=== PATIENT | female | born 1990 | race Two or more races ===

== ENCOUNTER 2017-12-03 19:06 | Emergency (ER) | payer BC, MEDICAID ==
--- NOTE | 2017-12-03 21:09 | EDM.PDOC ---
ED HPI GENERAL MEDICAL PROBLEM - General Chief Complaint: SPA ASSISTANT MANAGER Problem Stated Complaint: VAG BLEEDING Time Seen by Provider: 12/03/17 19:30 Source of Information: Reports: Patient, Family History Limitations: Reports: No Limitations - History of Present Illness INITIAL COMMENTS - FREE TEXT/NARRATIVE: c/o vaginal spotting pt 15w gestation, OB in [place], lives in [place], works at [employer] has had several OB visits, , had u/s at 9-10w has had a small amount of light pink blood on TP when she wipes x 2d, had a small amount of pink tinged mucus this evening no cramping, feeling fine otherwise, no f/c/d, no n/v, no pain left lower abdomen Pain Score (Numeric/FACES): 6 - Related Data Allergies Allergy/AdvReac Type Severity Reaction Status Date / Time No Known Allergies Allergy Verified 12/03/17 19:27 Home Meds: Home Meds Vit #76/Iron,Carb/Fa [Prenatabs Rx] 1 tab PO DAILY 03/28/15 [History] Past Medical History Other HEENT History: wisdom teeth SPA ASSISTANT MANAGER History: Reports: Social & Family History - Family History Family Medical History: Noncontributory - Tobacco Use Smoking Status *Q: Former Smoker Years of Tobacco use: 4 Packs/Tins Daily: 1 Used Tobacco, but Quit: Yes Month/Year Tobacco Last Used: 09/2017 Second Hand Smoke Exposure: No - Caffeine Use Caffeine Use: Reports: Soda, Tea - Recreational Drug Use Recreational Drug Use: No ED ROS GENERAL - Review of Systems Review Of Systems: See Below Constitutional: Reports: No Symptoms HEENT: Reports: No Symptoms Respiratory: Reports: No Symptoms Cardiovascular: Reports: No Symptoms Endocrine: Reports: No Symptoms GI/Abdominal: Reports: No Symptoms : Reports: Other (vag d/c with pink tinge) Musculoskeletal: Reports: No Symptoms Skin: Reports: No Symptoms Neurological: Reports: No Symptoms Psychiatric: Reports: No Symptoms Hematologic/Lymphatic: Reports: No Symptoms Immunologic: Reports: No Symptoms ED EXAM - Physical Exam Exam: See Below Exam Limited By: No Limitations General Appearance: Alert, WD/WN, No Apparent Distress, Other (moves easily) Throat/Mouth: Normal Inspection, Normal Lips, Normal Teeth, Normal Voice, No Airway Compromise Head: Atraumatic, Normocephalic Neck: Normal Inspection, Supple, Non-Tender, Full Range of Motion Respiratory/Chest: No Respiratory Distress, Lungs Clear, Normal Breath Sounds, No Accessory Muscle Use, Chest Non-Tender Cardiovascular: Regular Rate, Rhythm, No Edema, No Gallop, No Rub, Other (2/6 NAVYA at LSB) GI/Abdominal Exam: Soft, Non-Tender, No Distention, Other (obese, NT, gravid, 15 wk size on bimanual, strong maternal souffle heard, no FHT) (Female) Exam: Other (BUS and vag wnl, no RBC in vault, cx parous with no RBC , with a GC/chlamydia swab there was a very small amount of clear mucus with light pink tinge, no gross blood, no CMT, uterus 15w size, no inc'd tender, adnexa NT with no masses) Back Exam: Normal Inspection, Full Range of Motion, NT Extremities: Normal Inspection, Normal Range of Motion, Non-Tender, No Pedal Edema Neurological: Alert, Oriented, CN II-XII Intact, Normal Cognition, Normal Gait, No Motor/Sensory Deficits Psychiatric: Normal Affect, Normal Mood Skin Exam: Warm, Dry, Intact, Normal Color, No Rash Lymphatic: No Adenopathy Course - Vital Signs Last Recorded V/S: Last Vital Signs Temp 37.0 C 12/03/17 19:10 Pulse 91 12/03/17 19:10 Resp 17 12/03/17 19:10 BP 125/82 12/03/17 19:10 Pulse Ox 99 12/03/17 19:10 - Orders/Labs/Meds Orders: Active Orders 24 hr Category Date Time Status CHLAMYDIA/GC AMPLIFICATION Routine Lab 12/03/17 20:58 Ordered URINALYSIS W/MICROSCOPIC [UA W/MICROSCOPIC] [URIN] Stat Lab 12/03/17 19:41 Ordered Labs: Laboratory Tests 12/03/17 12/03/17 12/03/17 Range/Units 19:41 19:45 19:45 WBC 9.2 (4.5-12.0) X10-3/uL RBC 4.27 (3.23-5.20) x10(6)uL Hgb 12.3 (11.5-15.5) g/dL Hct 36.9 (30.0-51.3) % MCV 86.3 (80-96) fL MCH 28.7 (27.7-33.6) pg MCHC 33.3 (32.2-35.4) g/dL RDW 13.5 (11.5-15.5) % Plt Count 289 (125-369) X10(3)uL MPV 8.8 (7.4-10.4) fL Neut % (Auto) 61.2 (46-82) % Lymph % (Auto) 30.2 (13-37) % [place] % (Auto) 5.7 (4-12) % Eos % (Auto) 2 (1.0-5.0) % Baso % (Auto) 1 (0-2) % Neut # (Auto) 5.5 (1.6-8.3) # Lymph # (Auto) 2.8 (0.6-5.0) # [place] # (Auto) 0.5 (0.0-1.3) # Eos # (Auto) 0.2 (0.0-0.8) # Baso # (Auto) 0.1 (0.0-0.2) # Sodium 139 (135-145) mmol/L Potassium 3.5 (3.5-5.3) mmol/L Chloride 104 (100-110) mmol/L Carbon Dioxide 26 (21-32) mmol/L BUN 8 (7-18) mg/dL Creatinine 0.7 (0.55-1.02) mg/dL Est Cr Clr Drug Dosing 108.63 mL/min Estimated GFR (MDRD) > 60 (>60) BUN/Creatinine Ratio 11.4 (9-20) Glucose 111 (80-116) mg/dL Calcium 9.1 (8.6-10.2) mg/dL Total Bilirubin 0.5 (0.1-1.3) mg/dL AST 10 (5-25) IU/L ALT 17 (12-36) U/L Alkaline Phosphatase 52 L (56-112) IU/L Total Protein 7.0 (6.0-8.0) g/dL Albumin 2.9 L (3.5-5.2) g/dL Globulin 4.1 g/dL Albumin/Globulin Ratio 0.7 HCG, Quant (<5) mIU/mL Urine Color Yellow (YELLOW) Urine Appearance Clear (CLEAR) Urine pH 6.0 (5.0-6.5) Ur Specific [place] 1.015 (1.010-1.025) Urine Protein Negative (NEGATIVE) mg/dL Urine Glucose (UA) Normal (NEGATIVE) mg/dL Urine Ketones Negative (NEGATIVE) mg/dL Urine Occult Blood Moderate H (NEGATIVE) Urine Nitrite Negative (NEGATIVE) Urine Bilirubin Negative (NEGATIVE) Urine Urobilinogen Normal (NEGATIVE) mg/dL Ur Leukocyte Esterase Negative (NEGATIVE) Urine RBC 0-5 (0) Urine WBC 0-5 (0) Ur Squamous Epith Cells Few H (NS,R,O) Urine Bacteria Rare H (NS) 12/03/17 Range/Units 19:45 WBC (4.5-12.0) X10-3/uL RBC (3.23-5.20) x10(6)uL Hgb (11.5-15.5) g/dL Hct (30.0-51.3) % MCV (80-96) fL MCH (27.7-33.6) pg MCHC (32.2-35.4) g/dL RDW (11.5-15.5) % Plt Count (125-369) X10(3)uL MPV (7.4-10.4) fL Neut % (Auto) (46-82) % Lymph % (Auto) (13-37) % [place] % (Auto) (4-12) % Eos % (Auto) (1.0-5.0) % Baso % (Auto) (0-2) % Neut # (Auto) (1.6-8.3) # Lymph # (Auto) (0.6-5.0) # [place] # (Auto) (0.0-1.3) # Eos # (Auto) (0.0-0.8) # Baso # (Auto) (0.0-0.2) # Sodium (135-145) mmol/L Potassium (3.5-5.3) mmol/L Chloride (100-110) mmol/L Carbon Dioxide (21-32) mmol/L BUN (7-18) mg/dL Creatinine (0.55-1.02) mg/dL Est Cr Clr Drug Dosing mL/min Estimated GFR (MDRD) (>60) BUN/Creatinine Ratio (9-20) Glucose (80-116) mg/dL Calcium (8.6-10.2) mg/dL Total Bilirubin (0.1-1.3) mg/dL AST (5-25) IU/L ALT (12-36) U/L Alkaline Phosphatase (56-112) IU/L Total Protein (6.0-8.0) g/dL Albumin (3.5-5.2) g/dL Globulin g/dL Albumin/Globulin Ratio HCG, Quant 250 (<5) mIU/mL Urine Color (YELLOW) Urine Appearance (CLEAR) Urine pH (5.0-6.5) Ur Specific [place] (1.010-1.025) Urine Protein (NEGATIVE) mg/dL Urine Glucose (UA) (NEGATIVE) mg/dL Urine Ketones (NEGATIVE) mg/dL Urine Occult Blood (NEGATIVE) Urine Nitrite (NEGATIVE) Urine Bilirubin (NEGATIVE) Urine Urobilinogen (NEGATIVE) mg/dL Ur Leukocyte Esterase (NEGATIVE) Urine RBC (0) Urine WBC (0) Ur Squamous Epith Cells (NS,R,O) Urine Bacteria (NS) - Re-Assessments/Exams Free Text/Narrative Re-Assessment/Exam: 12/03/17 22:00 PE is benign, however HCG is 250 indicated a missed AB, pt will need to see her OB tomorrow. She is tearful, understands the need for f/u. Departure - Departure Time of Disposition: 22:01 Disposition: Home, Self-Care 01 Condition: Good Clinical Impression: Incomplete miscarriage - Discharge Information Instructions: Incomplete Miscarriage Referrals: Corbin Ramos MD [Primary Care Provider] - Forms: ED Department Discharge Additional Instructions: The HCG hormone unfortunately is 250, which is quite low, and indicates that the baby has not survived. You will need to see your SPA ASSISTANT MANAGER tomorrow for further recommendations as you may need a D & C. Call your SPA ASSISTANT MANAGER tomorrow at 8 AM for a same day appointment. You may begin to get some cramps. If you do, you may take ibuprofen 200 mg 3 tabs plus acetaminophen 500 mg 2 tabs every 6 hours. Soak in a warm tub for 10- 15 minutes as needed. No work for 2 days. Return to ED if you are feeling worse. - My Orders Last 24 Hours: My Active Orders 12/03/17 19:41 URINALYSIS W/MICROSCOPIC [UA W/MICROSCOPIC] [URIN] Stat 12/03/17 20:58 CHLAMYDIA/GC AMPLIFICATION Routine - Assessment/Plan Last 24 Hours: My Active Orders 12/03/17 19:41 URINALYSIS W/MICROSCOPIC [UA W/MICROSCOPIC] [URIN] Stat 12/03/17 20:58 CHLAMYDIA/GC AMPLIFICATION Routine
[2017-12-03 22:22] VITALS: BP 128/68
== END 2017-12-03 22:15 | disposition home or self-care (01) ==
LOC: FB.ED 19:06
DX: O03.4 Incomplete spontaneous abortion without complication (principal); Z87.891 Personal history of nicotine dependence
CPT/HCPCS: 36415; 80053; 81001; 84702; 85025; 87491; 87591; 99284